=== PATIENT | female | born 1995 | race Caucasian/White ===

== ENCOUNTER 2017-01-30 10:33 | Emergency (ER) | payer SELFPAY ==
[~2017-01-30] VITALS: Ht 162.6 cm; Wt 57.6 kg
[~2017-01-30 10:33] MED LIST: CIPRO500 MG PO; IBUPROFEN200 M1 PO; IBUPROFEN600 MG PO; IRON325 MG PO; MIRALAX255 GM PO; MOTRIN600 MG PO; NAPROSYN375 MG PO; NAPROSYN500 MG PO; PAIN MED; PEPCID20 MG PO; TRI-SPRINTEC1 EACH PO; ULTRAM50 MG PO; ZOFRAN ODT4 MG PO; ZYRTEC10 M3 PO
[2017-01-30] MEDS ORDERED: MOTRIN600 MG PO (12:49)
[2017-01-30 13:08] VITALS: BP 125/78
== END 2017-01-30 13:07 | disposition home or self-care (01) ==
LOC: EME 10:33
DX: S93.402A Sprain of unspecified ligament of left ankle, initial encounter (principal); W01.0XXA Fall on same level from slipping, tripping and stumbling without subsequent striking against object, initial encounter
CPT/HCPCS: 73610; 99281; 99283

== ENCOUNTER 2017-02-05 22:39 | Emergency (ER) | payer OTHER ==
[~2017-02-05] VITALS: Ht 162.6 cm; Wt 56.3 kg
[2017-02-06 00:59] VITALS: BP 119/67
== END 2017-02-06 01:00 | disposition home or self-care (01) ==
LOC: EME 22:39
DX: S93.402A Sprain of unspecified ligament of left ankle, initial encounter (principal)
CPT/HCPCS: 73610; 99281; 99283

== ENCOUNTER 2017-02-27 19:15 | Emergency (ER) | payer SELFPAY ==
[~2017-02-27] VITALS: Ht 162.6 cm; Wt 57.6 kg
[2017-02-27 21:27] VITALS: BP 123/66
== END 2017-02-27 21:28 | disposition home or self-care (01) ==
LOC: EME 19:15
DX: S93.602A Unspecified sprain of left foot, initial encounter (principal); X50.1XXA Overexertion from prolonged static or awkward postures, initial encounter; Y99.0 Civilian activity done for income or pay
CPT/HCPCS: 73630; 99281; 99284

== ENCOUNTER 2017-07-11 14:24 | Emergency (ER) | payer SELFPAY ==
[~2017-07-11] VITALS: Ht 162.6 cm; Wt 55.3 kg
[2017-07-11] MEDS ORDERED: AFRIN,GENASAL D15 ML BOTH NARES (15:55)
[2017-07-11 16:09] VITALS: BP 124/76
== END 2017-07-11 16:09 | disposition home or self-care (01) ==
LOC: EME 14:24
DX: B34.9 Viral infection, unspecified (principal); R56.9 Unspecified convulsions
CPT/HCPCS: 99281; 99283

== ENCOUNTER 2017-07-30 18:11 | Emergency (ER) | payer SELFPAY ==
[~2017-07-30] VITALS: Ht 162.6 cm; Wt 56.1 kg
[~2017-07-30 18:11] MED LIST changes: +AFRIN,GENASAL D15 ML BOTH NARES
[2017-07-30 18:43] LABS: HEMATOCRIT 41.2 % (36.0-46.0); HEMOGLOBIN 14.3 G/DL (11.9-15.5); MCH 31.2 PG (29.0-34.0); MCHC 34.7 G/DL (30.0-36.0); PLATELET COUNT 223 K/uL (156-360); RBC DIS.WIDTH-CV 13.3 % (11.8-14.6); RBC DIS.WIDTH-SD 43.9 % (39-53); RED BLOOD COUNT 4.58 M/uL (3.80-5.20); WHITE BLOOD COUNT 9.2 K/uL (4.1-10.2)
[2017-07-30 18:52] LABS: CHLORIDE 105 mEq/L (99-109); POTASSIUM 3.8 mEq/L (3.7-5.4); SODIUM 142 mEq/L (136-147)
[2017-07-30 18:54] LABS: GLUCOSE 103 mg/dL (70-99)
[2017-07-30 18:58] LABS: CREATININE 0.8 mg/dL (0.6-1.3); GFR ESTIMATE (CALCULATED) > 59 mL/min/
[2017-07-30 18:59] LABS: UREA NITROGEN (BUN) 16 mg/dL (9-23)
[2017-07-30 19:37] LABS: APPEARANCE CLEAR ((CLEAR)); BILIRUBIN NEGATIVE; BLOOD NEGATIVE; COLOR YELLOW ((YELLOW)); GLUCOSE (STRIP) NEGATIVE; KETONES NEGATIVE; LEUKOCYTES NEGATIVE; NITRITE NEGATIVE; PROTEIN (STRIP) NEGATIVE; SPECIFIC GRAVITY 1.023 (1.000-1.030); UCUL ADDED? NO; UROBILINOGEN 0.2 MG/DL (0.2-1.0)
[2017-07-30 20:18] LABS: ALBUMIN 4.1 g/dL (3.2-4.8)
[2017-07-30 20:21] LABS: TOTAL PROTEIN 7.2 g/dL (6.4-8.3)
[2017-07-30 20:23] LABS: TOTAL BILIRUBIN 0.5 mg/dL (0.0-1.0)
[2017-07-30 20:24] LABS: ALKALINE PHOSPHATASE 100 IU/L (3-129)
[2017-07-30 20:26] LABS: AST (GOT) 27 IU/L (2-34); DIRECT BILIRUBIN 0.2 mg/dL (0.0-0.3)
[2017-07-30 20:27] LABS: ALT (GPT) 29 IU/L (3-49); LIPASE 14 U/L (1.0-51.0)
[2017-07-30 20:34] LABS: QUANTITATIVE HCG < 4.0 MIU/ML
[2017-07-30 21:08] LABS: MONOSPOT (MONONUCLEOSIS SEROL) NEGATIVE
[2017-07-30] MEDS ORDERED: FLAGYL500 MG PO (22:58)
[2017-07-30] MEDS ORDERED: ZOFRAN4 MG SL (22:58)
[2017-07-30] MEDS ORDERED: CIPRO500 MG PO (22:58)
[2017-07-30 23:30] VITALS: BP 130/61
== END 2017-07-30 23:35 | disposition home or self-care (01) ==
LOC: EME 18:11
PROVIDERS: Physician Assistant
DX: K57.32 Diverticulitis of large intestine without perforation or abscess without bleeding (principal); K59.00 Constipation, unspecified
CPT/HCPCS: 74177; 80048; 80076; 81003; 83690; 84702; 85027; 86308; 99281; 99284; J2405; J7030